=== PATIENT | female | born 1945 | race Caucasian/White ===

== ENCOUNTER 2020-02-23 16:33 | Inpatient (IN) ==
[2020-02-23 18:42] LABS: Basophils % 0.1 % (0.0-0.8); Hematocrit 37.9 VOL% (35.7-47.0); Hemoglobin 11.5 GM/DL (12.0-16.0); Immature Granulocytes % 0.9 %; Immature Granulocytes Absolute 0.22 #; Lymphocytes # 0.9 10*3/uL (1.4-4.0); Lymphocytes % 3.7 % (21.3-54.2); Mean Corpuscular HGB Conc 30.3 GM/DL (32-36); Mean Corpuscular Volume 81.5 FL (87-102); Mean Platelet Volume 12.7 FL (9.6-12.0); Monocytes % 5.1 % (1.7-12.7); Neutrophils % 90.2 % (38.7-73.9); Platelet Count 270 T/CUMM (130-400); Red Blood Count 4.65 MC/CUMM (3.8-5.5); Red Cell Distribution Width 24.5 % (9.3-17.3); White Blood Count 25.1 T/CUMM (4-12)
[2020-02-23] MEDS ORDERED: ONDANSETRON 4 MG/2 ML VIAL IV STA (18:45)
[2020-02-23] MEDS ORDERED: ALBUTEROL/IPRATROPIUM 3 ML NEB RESP TX STA (18:45)
[2020-02-23] MEDS ORDERED: methylPREDNISolone SOD SUC 125 MG/2 ML VIAL IV STA (18:45)
[2020-02-23] MEDS ORDERED: SODIUM CHLORIDE 0.9% 500 ML IV STA (18:45)
[2020-02-23] MEDS ORDERED: PANTOPRAZOLE 40 MG VIAL IV STA (18:45)
[2020-02-23 18:54] LABS: Albumin 1.7 G/DL (3.4-5.0); Bilirubin,Total 5.4 MG/DL (0.2-1.0); Calcium 8.9 MG/DL (8.5-10.1); Osmolality,Calculated 279.8 MOS/KG (273-304); Total Protein 6.1 G/DL (6.4-8.3)
[2020-02-23 19:01] LABS: Hypochromasia Slight; Lymphocytes 4 % (20-55); Segmented Neutrophils 93 % (50-85); Target Cells Few; Total Cells Counted 100
[2020-02-23 19:02] LABS: Platelet Estimate Adequate
[2020-02-23 19:33] LABS: Amylase 9 U/L (25-115)
[2020-02-23] MEDS ORDERED: DEXTROSE 50% 25 GM/50 ML VIAL IV PRN (20:25)
[2020-02-23] MEDS ORDERED: GLUCAGON 1 MG VIAL IM PRN (20:25)
[2020-02-23] MEDS ORDERED: LOPERAMIDE 2 MG CAPSULE PO PRN (20:30)
[2020-02-23] MEDS ORDERED: traMADol 50 MG TABLET PO PRN (20:30)
[2020-02-23 20:39] LABS: Hepatitis B Core IgM Quant 0.15 Index; Hepatitis B Surface Ag Quant < 0.10 Index; Hepatitis B Surface Ag Result Negative (Negative); Hepatitis C Virus Ab Quant 0.02 Index; Hepatitis C Virus Ab Result Negative (Negative)
[2020-02-23] MEDS ORDERED: AZITHROMYCIN INJ 500 MG in SODIUM CHLORIDE 0.9% 250 ML IV SCH (21:00)
[2020-02-23] MEDS ORDERED: cefTRIAXone 1,000 MG in SODIUM CHLORIDE 0.9% 100 ML IV SCH (21:00)
[2020-02-23] MEDS ORDERED: DEXTROSE 50% 25 GM/50 ML SYRINGE IV PRN (21:10)
[2020-02-24] MEDS: AMIODARONE 200 MG TABLET PO SCH ×3 (01:05→22:26)
[2020-02-24] MEDS: DICYCLOMINE 10 MG CAPSULE PO SCH ×4 (01:05→22:26)
[2020-02-24] MEDS: SODIUM CHLOR 0.9% KCL 20 MEQ 20 MEQ/1,000 ML BAG IV SCH ×2 (01:05→09:51)
[2020-02-24] MEDS: ONDANSETRON 4 MG/2 ML VIAL IV PRN ×3 (01:05→14:40)
[2020-02-24] MEDS: busPIRone 5 MG TABLET PO SCH ×3 (01:06→22:26)
[2020-02-24 01:09] LABS: Basophils # 0.1 10*3/uL (0.0-0.2); Basophils % 0.2 % (0.0-0.8); Hematocrit 33.9 VOL% (35.7-47.0); Hemoglobin 10.1 GM/DL (12.0-16.0); Immature Granulocytes Absolute 0.33 #; Lymphocytes # 1.1 10*3/uL (1.4-4.0); Lymphocytes % 3.2 % (21.3-54.2); Mean Corpuscular HGB Conc 29.8 GM/DL (32-36); Mean Corpuscular Volume 83.1 FL (87-102); Mean Platelet Volume 12.5 FL (9.6-12.0); Monocytes % 5.3 % (1.7-12.7); Neutrophils % 90.3 % (38.7-73.9); Platelet Count 340 T/CUMM (130-400); Red Blood Count 4.08 MC/CUMM (3.8-5.5); Red Cell Distribution Width 24.3 % (9.3-17.3); White Blood Count 32.6 T/CUMM (4-12)
[2020-02-24] MEDS: ALBUTEROL 2.5 MG/3 ML NEB RESP TX SCH ×4 (01:22→19:18)
[2020-02-24 01:36] LABS: Blood Urea Nitrogen 31 MG/DL (7-18); Calcium 8.4 MG/DL (8.5-10.1); Estimated Glom Filtration Rate 24 ML/MIN; Glucose 111 MG/DL (74-106); HDL Cholesterol 16 MG/DL (40-60); Osmolality,Calculated 282.7 MOS/KG (273-304); Risk Ratio 6.88; Thyroid Stimulating Hormone < 0.005 uIU/ml (0.358-3.74); Triglycerides 246 MG/DL (2-150); VLDL CHOLESTEROL 49.2 MG/DL
[2020-02-24 01:44] LABS: Band Neutrophils 2 % (0-10); Lymphocytes 4 % (20-55); Segmented Neutrophils 90 % (50-85); Total Cells Counted 100
[2020-02-24 01:46] LABS: Hypochromasia 1+; Platelet Estimate Normal; Target Cells Few
[2020-02-24 06:07] LABS: INR 3.5; PT Patient Result 35.4 SECS (9.8-11.9)
[2020-02-24 06:31] LABS: Albumin 1.4 G/DL (3.4-5.0); Bilirubin,Total 4.3 MG/DL (0.2-1.0); Calcium 8.1 MG/DL (8.5-10.1); Osmolality,Calculated 286.4 MOS/KG (273-304); Total Protein 5.1 G/DL (6.4-8.3)
[2020-02-24] MEDS ORDERED: RIVAROXABAN 20 MG TABLET PO SCH (09:00)
[2020-02-24] MEDS ORDERED: LORATADINE 10 MG TABLET PO SCH (09:00)
[2020-02-24] MEDS ORDERED: ASPIRIN EC 81 MG TABLET PO SCH (09:00)
[2020-02-24] MEDS ORDERED: PARoxetine 20 MG TABLET PO SCH (09:00)
[2020-02-24] MEDS ORDERED: PANTOPRAZOLE 40 MG VIAL IV SCH (09:00)
[2020-02-24] MEDS ORDERED: TUBERCULIN SKIN TEST 0.1 ML SYRINGE INTRADERM ONE (13:28)
[2020-02-24] MEDS ORDERED: PIPERACILLIN/TAZOBACTAM 3,375 MG in SODIUM CHLORIDE 0.9% 100 ML IV SCH (15:00)
[2020-02-24] MEDS: PIPERACILLIN/TAZOBACTAM 3,375 MG in SODIUM CHLORIDE 0.9% 100 ML IV SCH (15:58)
[2020-02-24] MEDS: HEPARIN 5,000 UNIT/1 ML VIAL SUBCUT SCH (15:58)
[2020-02-24 16:47] LABS: Bacteria,Urine Many /HPF (Few); Blood, Urine Small mg/dL (Negative); Glucose,Urine (UA) Negative (Negative); Ketones,Urine Negative (Negative); Nitrite,Urine Negative (Negative); Protein,Urine 100 MG/DL; RBC,Urine 78 /HPF (0-4); Urine Appearance CLOUDY (Clear); Urine Color Amber (Yellow); Urine Specific Gravity 1.021 (1.001-1.035); WBC,Urine 725 /HPF (0-6)
[2020-02-24 16:48] LABS: Bilirubin,Urine Small mg/dL (Negative)
[2020-02-24] MEDS ORDERED: SODIUM CHLORIDE 0.9% 500 ML IV ONE ×2 (17:31→22:14)
[2020-02-24] MEDS: SIMVASTATIN 20 MG TABLET PO SCH (22:27)
[2020-02-24] MEDS ORDERED: SODIUM CHLORIDE 0.9% 1,000 ML IV ONE (23:00)
[2020-02-24] MEDS ORDERED: SODIUM BICARBONATE 50 MEQ/50 ML VIAL IV ONE ×4 (23:00→23:40)
[2020-02-24] MEDS ORDERED: ETOMIDATE 20 MG/10 ML VIAL IV ONE (23:01)
[2020-02-24] MEDS ORDERED: VECURONIUM 10 MG VIAL IV ONE (23:01)
[2020-02-24] MEDS ORDERED: NOREPINEPHRINE 4 MG/4 ML VIAL IV ONE (23:06)
[2020-02-24] MEDS: NOREPINEPHRINE 8 MG in SODIUM CHLORIDE 0.9% 242 ML IV PRN (23:12)
[2020-02-24] MEDS ORDERED: DEXTROSE 50% 25 GM/50 ML VIAL IV ONE ×2 (23:16→23:35)
[2020-02-24 23:21] LABS: ABG HCO3 11.4 MMOL/L (20-26); ABG Oxygen Saturation 26.6 % (95-100); ABG PCO2 58.6 MM HG (35-48); ABG TCO2 15.1 MMOL/L (23-27)
[2020-02-24 23:24] LABS: ABG PH 7.017 (7.35-7.45)
[2020-02-24 23:25] LABS: ABG PO2 32.9 MM HG (80-95)
[2020-02-24] MEDS ORDERED: CALCIUM CHLORIDE 1,000 MG/10 ML SYRINGE IV ONE (23:33)
[2020-02-24] MEDS ORDERED: PHENYLEPHRINE DRIP 40 MG/250 ML PREMIX IV ONE (23:46)
[2020-02-24] MEDS ORDERED: PHENYLEPHRINE DRIP 40 MG/250 ML PREMIX IV PRN (23:56)
[2020-02-25] MEDS: DICYCLOMINE 10 MG CAPSULE PO SCH (00:26)
[2020-02-25] MEDS: SIMVASTATIN 20 MG TABLET PO SCH (00:27)
[2020-02-25] MEDS: AMIODARONE 200 MG TABLET PO SCH (00:27)
[2020-02-25] MEDS: busPIRone 5 MG TABLET PO SCH (00:27)
[2020-02-25 00:31] LABS: ABG Base Excess -15.7 MMOL/L (-2.5-2.5); ABG HCO3 13.9 MMOL/L (20-26); ABG Oxygen Saturation 97.3 % (95-100); ABG PCO2 48.5 MM HG (35-48); ABG PH 7.076 (7.35-7.45); ABG PO2 135.8 MM HG (80-95); ABG TCO2 15.4 MMOL/L (23-27)
[2020-02-25 00:54] LABS: VBG Base Excess -14.4 MEQ/L (0-4); VBG HCO3 13.7 MEQ/L (24-28); VBG Oxygen Saturation 98.2 %; VBG PH 7.142; VBG PO2 98.2 MMHG (17-40)
[2020-02-25 00:56] LABS: INR 4.2; PT Patient Result 41.6 SECS (9.8-11.9); Partial Thromboplastin Time 61.1 SECS (23.9-33.8)
[2020-02-25] MEDS ORDERED: SODIUM BICARB INJ 150 MEQ in DEXTROSE 5% 850 ML IV SCH (01:00)
[2020-02-25 01:05] LABS: Alanine Aminotransferase 195 U/L (13-56); Albumin 1.2 G/DL (3.4-5.0); Alkaline Phosphatase 229 U/L (45-117); Aspartate Amino Transferase 1968 U/L (0-37); Blood Urea Nitrogen 39 MG/DL (7-18); Calcium 7.2 MG/DL (8.5-10.1); Estimated Glom Filtration Rate 16 ML/MIN; Glucose 162 MG/DL (74-106); Osmolality,Calculated 298.8 MOS/KG (273-304); Total Protein 4.5 G/DL (6.4-8.3); Troponin I 0.045 NG/ML (0.00-0.045)
[2020-02-25] MEDS: SODIUM CHLOR 0.9% KCL 20 MEQ 20 MEQ/1,000 ML BAG IV SCH (01:08)
[2020-02-25] MEDS: HEPARIN 5,000 UNIT/1 ML VIAL SUBCUT SCH (01:09)
[2020-02-25] MEDS: ALBUTEROL 2.5 MG/3 ML NEB RESP TX SCH (01:14)
[2020-02-25 01:16] LABS: Basophils % 0.2 % (0.0-0.8); Hematocrit 31.9 VOL% (35.7-47.0); Immature Granulocytes % 0.9 %; Immature Granulocytes Absolute 0.23 #; Lymphocytes % 3.9 % (21.3-54.2); Mean Corpuscular HGB Conc 28.2 GM/DL (32-36); Mean Corpuscular Volume 88.4 FL (87-102); Mean Platelet Volume 13.1 FL (9.6-12.0); Monocytes % 3.5 % (1.7-12.7); NRBC # 0.03 10*3/uL; Neutrophils % 91.5 % (38.7-73.9); Platelet Count 415 T/CUMM (130-400); Red Blood Count 3.61 MC/CUMM (3.8-5.5); Red Cell Distribution Width 25.2 % (9.3-17.3); White Blood Count 25.2 T/CUMM (4-12)
[2020-02-25] MEDS ORDERED: SODIUM CHLORIDE 0.9% 1,000 ML IV SCH ×2 (01:30→02:30)
[2020-02-25 01:32] LABS: VBG Base Excess -18.7 MEQ/L (0-4); VBG HCO3 10.4 MEQ/L (24-28); VBG Oxygen Saturation 88.8 %; VBG PCO2 46.1 MMHG (41-51); VBG PH 7.016; VBG PO2 87.6 MMHG (17-40)
[2020-02-25] MEDS ORDERED: NOREPINEPHRINE 4 MG/4 ML VIAL IV ONE (01:49)
[2020-02-25 01:51] LABS: VBG Base Excess -14.3 MEQ/L (0-4); VBG Oxygen Saturation 70.8 %; VBG PCO2 64.1 MMHG (41-51); VBG PH 7.026; VBG PO2 60.4 MMHG (17-40)
[2020-02-25] MEDS ORDERED: LACTULOSE 20 GM/30 ML UDCUP PO SCH (02:00)
[2020-02-25] MEDS ORDERED: SODIUM CHLORIDE 0.9% 1,000 ML IV ONE (02:19)
[2020-02-25] MEDS ORDERED: ALBUMIN 25% 25 GM in PREMIX 1 EACH IV ONE (02:20)
[2020-02-25] MEDS ORDERED: VANCOMYCIN INJ 1,000 MG in SODIUM CHLORIDE 0.9% 250 ML IV ONE (02:29)
[2020-02-25] MEDS: NOREPINEPHRINE 8 MG in SODIUM CHLORIDE 0.9% 242 ML IV PRN (02:38)
[2020-02-25 04:12] VITALS: BP 42/15
[2020-02-25 04:15] LABS: Lymphocytes 7 % (20-55); Segmented Neutrophils 89 % (50-85); Total Cells Counted 100
[2020-02-25 04:16] LABS: Anisocytosis 1+; Hypochromasia 1+; Microcytosis 1+; Platelet Estimate Increased
[2020-02-25] MEDS: PIPERACILLIN/TAZOBACTAM 3,375 MG in SODIUM CHLORIDE 0.9% 100 ML IV SCH (05:12)
[2020-02-25] MEDS ORDERED: PHENYLEPHRINE DRIP 40 MG/250 ML PREMIX IV PRN (23:30)
== END 2020-02-25 04:20 | disposition expired | DRG 441 ==
LOC: EDBD → EDUNIT# → N.ED 16:33 → N.EDINP 20:25 → N.3E 23:55 → N.ICU 02-24 23:09
PROVIDERS: ADMIT Internal Medicine; ATTEND Internal Medicine